=== PATIENT | female | born 1950 | race Caucasian/White ===

== ENCOUNTER 2017-04-25 09:23 | Day surgery (SDC) | payer MEDICARE, BC ==
--- NOTE | ~2017-04-25 | EGD ---
EGD REPORT [facility] [address] [id number] NAME: BRYN BANEGAS : 48 STATUS : REG [facility] PAT#: [id number] AGE: 66 ADM/REG DATE : 04/25/17 MR#: [id number] REPORT SERV DATE: 04/25/17 DICTATED BY: DEVON GALVAN DATE: 04/25/17 REPORT STATUS : Draft TRANSCRIBED BY: [facility] DATE: 04/25/17 [facility] Center Patient Name: Bryn Banegas Date of : 1950 Attending MD: DEVON GALVAN MD Procedure Date No Time: 04/25/2017 Procedure: Upper GI endoscopy Indications: Iron deficiency anemia secondary to chronic blood loss Referring MD: CONSTANCE COOMBS MD Medicines: Propofol per Anesthesia Complications: No immediate complications. Estimated blood loss: None. Procedure: Pre-Anesthesia Assessment: - After reviewing the risks and benefits, the patient was deemed in satisfactory condition to undergo the procedure. - Prior to the procedure, a History and Physical was performed, and patient medications and allergies were reviewed. The patient's tolerance of previous anesthesia was also reviewed. The risks and benefits of the procedure and the sedation options and risks were discussed with the patient. All questions were answered, and informed consent was obtained. Prior Anticoagulants: The patient has taken no previous anticoagulant or antiplatelet agents. ASA Grade Assessment: III - A patient with severe systemic disease. After reviewing the risks and benefits, the patient was deemed in satisfactory condition to undergo the procedure. After obtaining informed consent, the endoscope was passed under direct vision. Throughout the procedure, the patient's blood pressure, pulse, and oxygen saturations were monitored continuously. The GIF [id number] was introduced through the mouth, and advanced to the jejunum. The upper GI endoscopy was accomplished without difficulty. The patient tolerated the procedure well. Findings: The examined esophagus was normal. A few small sessile polyps with no stigmata of recent bleeding were found in the gastric fundus. The examined duodenum was normal. Biopsies were taken with a cold forceps for histology. Estimated blood loss: none. Impression: - Normal esophagus. - A few gastric polyps. EGD REPORT [address] [address] NAME: BRYN BANEGAS : 48 STATUS : REG [facility] [place] PAT#: [id number] AGE: 66 ADM/REG DATE : 04/25/17 MR#: [id number] REPORT SERV DATE: 04/25/17 DICTATED BY: DEVON GALVAN DATE: 04/25/17 REPORT STATUS : Draft TRANSCRIBED BY: [employer] DATE: 04/25/17 - Normal examined duodenum. Biopsied. - CARLYN. Recommendation: - Discharge patient to home (ambulatory). - Return to previous diet. - Continue present medications including Prilosec (omeprazole) 20 mg daily and iron. - Await pathology results. - Will schedule a small bowel x-ray to complete GI evaluation. - Patient has a contact number available for emergencies. The signs and symptoms of potential delayed complications were discussed with the patient. Return to normal activities tomorrow. Written discharge instructions were provided to the patient. Procedure Code(s): --- Professional --- 41127, Esophagogastroduodenoscopy, flexible, transoral; with biopsy, single or multiple Diagnosis Code(s): --- Professional --- K31.7, Polyp of stomach and duodenum D50.0, Iron deficiency anemia secondary to blood loss (chronic) CPT copyright 2013 [employer]. All rights reserved. The codes documented in this report are preliminary and upon specialty plant supervisor review may be revised to meet current compliance requirements. DEVON GALVAN MD 04/25/2017 11:06 AM This report has been signed electronically. Number of Addenda: 0 Note Initiated On: 04/25/2017 10:34 AM Scope Withdrawal Time 0 hours 0 minutes 0 seconds [address] [place] [address]
[~2017-04-25 09:23] MED LIST: GLUCOPHAGE1000 MG PO; GLUCOTRO10 PO; HYDROCHLOROT25 MG PO; IRON PO; LEVEMFLXPN SC; PRILO PO; PRIN10 PO; VICTOZA18 MG/3 ML SC; ZOCOR40 PO
== END 2017-04-25 23:59 | disposition home or self-care (01) ==
LOC: DMU 09:23
PROVIDERS: Internal Medicine Gastroenterology
PROC: 0DB98ZX Excision of Duodenum, Via Natural or Artificial Opening Endoscopic, Diagnostic (ICD-10-PCS; principal; 2017-04-25 11:30)
DX: K31.7 Polyp of stomach and duodenum (principal); D50.0 Iron deficiency anemia secondary to blood loss (chronic); E11.9 Type 2 diabetes mellitus without complications; E78.00 Pure hypercholesterolemia, unspecified; I10 Essential (primary) hypertension; G47.30 Sleep apnea, unspecified; K21.9 Gastro-esophageal reflux disease without esophagitis; M19.90 Unspecified osteoarthritis, unspecified site; Z98.51 Tubal ligation status; Z90.89 Acquired absence of other organs; Z90.49 Acquired absence of other specified parts of digestive tract; Z86.010 Personal history of colon polyps; Z79.899 Other long term (current) drug therapy; Z79.84 Long term (current) use of oral hypoglycemic drugs; Z79.4 Long term (current) use of insulin
CPT/HCPCS: 82962; 88305